=== PATIENT | female | born 1995 | race American Indian/Alaskan Native ===

== ENCOUNTER 2018-05-25 14:33 | Emergency (ER) | payer BC, OTHER ==
[2018-05-25 17:02] VITALS: BP 150/93
--- NOTE | 2018-05-25 17:04 | Emergency Department Report ---
Chief Complaint: Skin Rash Stated Complaint: RASH ON MIDDLE BACK/PAIN Time Seen by Provider: 05/25/18 16:59 - HPI History of Present Illness: Pt presents to the ED with c/o a rash that began on the back 6 days ago first started as small red papules, now with black spots overlying the rash itching says she has been using witch andrea (+) smoker MSE screening note: Focused history and physical exam performed. ED Disposition for MSE Condition: Stable
[2018-05-25] MEDS ORDERED: BENADRYL PO ONE (19:28)
[2018-05-25] MEDS ORDERED: PEPCID PO ONE (19:28)
[2018-05-25] MEDS ORDERED: DELTASONE PO ONE (19:28)
--- NOTE | 2018-05-25 20:15 | Emergency Department Report ---
ED Rash HPI - HPI Chief Complaint: Skin Rash Stated Complaint: RASH ON MIDDLE BACK/PAIN Time Seen by Provider: 05/25/18 16:59 Duration: 5 Days Location: Back Suspected Cause: Unknown Rash Symptoms: Yes Itching, No Facial Swelling, No Tongue/Oral Swelling, No Breathing Difficulties, No Choking Sensation, No Wheezing/Dyspnea, No Peeling, No Blistering, No Fever, No Lightheaded, No Malaise, No Myalgias Severity: moderate Other History: Pt presents to the ED with c/o a rash that began on the back 6 days ago. first started as small red papules, now with black spots overlying the rash. itching says she has been using witch andrea ED Review of Systems ROS: Stated complaint: RASH ON MIDDLE BACK/PAIN Other details as noted in HPI Constitutional: denies: chills, fever Eyes: denies: eye pain, eye discharge, vision change ENT: denies: ear pain, throat pain Respiratory: denies: cough, shortness of breath, wheezing Cardiovascular: denies: chest pain, palpitations Endocrine: no symptoms reported Gastrointestinal: denies: abdominal pain, nausea, diarrhea Genitourinary: denies: urgency, dysuria, discharge Musculoskeletal: denies: back pain, joint swelling, arthralgia Skin: rash (back). denies: lesions Neurological: denies: headache, weakness, paresthesias Psychiatric: denies: anxiety, depression Hematological/Lymphatic: denies: easy bleeding, easy bruising ED Past Medical Hx - Past Medical History Previous Medical History?: No - Surgical History Past Surgical History?: No - Social History Smoking Status: Current Every Day Smoker Substance Use Type: None - Medications Home Medications: Home Medications Medication Instructions Recorded Confirmed Last Taken Type Clindamycin [Clindamycin CAP] 300 mg PO BID #20 capsule 03/05/13 Unknown Rx Famotidine [Pepcid] 20 mg PO BID 7 Days #14 tablet 05/25/18 Unknown Rx Triamcinolone Aceton 0.1% (Nf) 1 applic TP BID 14 Days #1 tube 05/25/18 Unknown Rx [Kenalog (NF)] diphenhydrAMINE [Benadryl CAP] 25 mg PO Q6HR PRN 7 Days #30 05/25/18 Unknown Rx capsule predniSONE [Deltasone] 40 mg PO QDAY 5 Days #10 tab 05/25/18 Unknown Rx Rash Exam - Exam General: Vital signs noted. No distress. Alert and acting appropriately. HEENT: No Periorbital Edema, No Conjuctival Injection, No Chemosis, No Perioral Edema, No Tongue Edema, No Uvular Edema, No Compromised Airway, No Drooling Lungs: Yes Good Air Exchange (Normal Breath Sounds), No Wheezes, No Ronchi, No Stridor, No Cough, No Labored Respirations, No Retractions, No Use of Accessory Muscles, No Other Abnormal Lung Sounds Heart: Yes Regular, No Murmur Skin: Yes Urticarial Rash, Yes Maculopapular Rash, Yes Excoriations, Yes Erythema, No Morbilliform rash, No Bulla(e), No Weeping, No Tenderness, No Edema, No Encrustations, No Other Other: Positive: Abdomen Normal, Neurologic Normal, Musculoskeletal Normal (no weeping no fever no open lesions ) ED Course Vital Signs 05/25/18 17:01 Temperature 98.3 F Pulse Rate 88 Respiratory 16 Rate Blood Pressure 150/93 O2 Sat by Pulse 100 Oximetry ED Medical Decision Making - Medical Decision Making this is contact dermatitis Critical care attestation.: If time is entered above; I have spent that time in minutes in the direct care of this critically ill patient, excluding procedure time. ED Disposition Clinical Impression: Contact dermatitis Qualifiers: Contact dermatitis type: allergic Contact dermatitis trigger: unspecified trigger Qualified Code(s): L23.9 - Allergic contact dermatitis, unspecified cause Disposition: - TO HOME OR SELFCARE Is pt being admited?: No Does the pt Need Aspirin: No Condition: Stable Instructions: Contact Dermatitis (ED) Prescriptions: diphenhydrAMINE [Benadryl CAP] 25 mg PO Q6HR PRN 7 Days #30 capsule PRN Reason: Itching allergies predniSONE [Deltasone] 40 mg PO QDAY 5 Days #10 tab Triamcinolone Aceton 0.1% (Nf) [Kenalog (NF)] 1 applic TP BID 14 Days #1 tube Famotidine [Pepcid] 20 mg PO BID 7 Days #14 tablet Referrals: PRIMARY CARE, [Primary Care Provider] - 3-5 Days Forms: Work/School Release Form(ED) Time of Disposition: 20:15
== END 2018-05-25 20:20 | disposition home or self-care (01) ==
LOC: ED 14:33
DX: L25.9 Unspecified contact dermatitis, unspecified cause (principal); F17.200 Nicotine dependence, unspecified, uncomplicated
CPT/HCPCS: 99282; J7512